=== PATIENT | female | born 1940 ===

== ENCOUNTER 2022-07-12 12:37 | Emergency (ER) | payer MEDICARE, OTHER ==
[2022-07-12] MEDS: Sodium Chloride 0.9% 10 ML Syringe FLUSH PRN (13:15)
[2022-07-12 13:42] LABS: PTT,PARTIAL THROMBOPLSTIN TIME 26.4 SEC (22.0-34.0)
[2022-07-12 13:44] LABS: ANION GAP 11.9 mEq/L (7-13)
[2022-07-12] MEDS: Potassium Chloride 10 MEQ Tab.ER PO ONE (14:14)
[2022-07-12] MEDS: Potassium Chloride 20 MEQ in Premix Bag 1 BAG IV ONE (14:14)
[2022-07-12] MEDS: Lidocaine 1% 5 ML VIAL INJECT ONE (14:14)
[2022-07-12 14:24] LABS: CORONAVIRUS COVID-19 NAA NEGATIVE (NEGATIVE); RESPIRATORY SYNCYTIAL VIR NAA NEGATIVE (NEGATIVE)
== END 2022-07-12 16:32 | disposition home or self-care (01) ==
LOC: DL.ED 12:37
DX: D47.2 Monoclonal gammopathy (principal); E87.6 Hypokalemia; E78.00 Pure hypercholesterolemia, unspecified; I10 Essential (primary) hypertension; Z88.8 Allergy status to other drugs, medicaments and biological substances; Z88.1 Allergy status to other antibiotic agents; Z79.899 Other long term (current) drug therapy; Z20.822 Contact with and (suspected) exposure to COVID-19
CPT/HCPCS: 0241U; 36415; 80053; 81001; 82607; 83605; 83735; 84100; 84145; 84443; 85025; 85610; 85651; 85730; 86140; 93005; 93010; 96365; 96366; 99283-25; 99284; A9270-GY; J3480; J3490

== ENCOUNTER 2023-03-28 05:56 | Day surgery (SDC) | payer MEDICARE ==
[2023-03-28] MEDS ORDERED: Dextrose 5%-0.45% NaCl 1,000 ML IV SCH (06:00)
[2023-03-28] MEDS ORDERED: Midazolam 1 MG/ML 2 ML SDV ONE (06:11)
[2023-03-28] MEDS ORDERED: fentaNYL 100 MCG/2 ML SDV IV ONE ×3 (06:11→07:06)
[2023-03-28] MEDS ORDERED: fentaNYL 100 MCG/2 ML SDV ONE (06:11)
[2023-03-28] MEDS ORDERED: Midazolam 1 MG/ML 2 ML SDV IV ONE ×7 (06:11→07:16)
== END 2023-03-28 09:15 | disposition home or self-care (01) ==
LOC: DL.ENDO 05:56
PROVIDERS: ATTEND Internal Medicine Gastroenterology
DX: Z12.11 Encounter for screening for malignant neoplasm of colon (principal); I10 Essential (primary) hypertension; E78.00 Pure hypercholesterolemia, unspecified; E66.01 Morbid (severe) obesity due to excess calories; Z68.35 Body mass index [BMI] 35.0-35.9, adult; Z79.899 Other long term (current) drug therapy
CPT/HCPCS: 45378; J2250; J3010; J7042